=== PATIENT | female | born 1980 | race Caucasian/White ===

== ENCOUNTER 2023-05-12 00:44 | Day surgery (SDC) | payer OTHER, SELFPAY ==
[2023-04-27 10:11] VITALS: BMI 36.6
--- NOTE | 2023-05-10 09:12 | SUR.PREOP ---
Patient called regarding upcoming procedure. Reviewed preop instructions, appointment times, and procedure prep.
--- NOTE | 2023-05-11 13:33 | PM.HPGS ---
History of Present Illness History of Present Illness Consent: Risks, benefits, and alternatives have been discussed and questions answered. Patient agrees to proceed with procedure. Chief complaint: hx colon polyps Narrative: Tiffani Hackett is a 42 year old female referred for colon cancer screening. She has a history of colon polyps. Her last colonoscopy was 5 years ago. Review of Systems Review of Systems: All systems reviewed & are unremarkable except as noted in HPI and below PMFSH Past Medical History Medical History Anal fissure Carpal tunnel syndrome Chronic gastroesophageal reflux disease Colon polyps hx colon polyps 2015 2.26.18 normal. 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 Residual hemorrhoidal skin tags Skin scarring/fibrosis Social History Social History Smoking status: Never smoker Second hand tobacco smoke exposure: No Alcohol intake: current Substance use: never Substance use type: does not use Lack of Transportation: No Lack of Food: Never True Current Housing: I Have Housing Concerned About Future Housing: No Difficulty Paying Gas/Electric Bills: No Difficulty Paying for Meds: No Currently Unemployed: No Education: Bachelor's Degree Difficulty w/ Childcare or Family Care: No Living arrangements: alone Occupation/Education: occupation Spiritual care concerns: No Meds Home Medications and Allergies Home Medications Medication Instructions Recorded Confirmed Type fluticasone propionate 50 2 spray intranasal DAILY #50 mL 05/13/21 04/27/23 Rx mcg/actuation nasal spray,suspension (Flonase Allergy Relief) sumatriptan succinate 50 mg tablet 50 mg PO .COMPLEX #30 tabs 02/14/23 04/27/23 Rx Adult One Daily Multivitamin 1 gum PO DAILY 04/27/23 04/27/23 History acetaminophen 500 mg tablet 500 mg PO QID PRN Pain 04/27/23 04/27/23 History (Acetaminophen Extra Strength) propranolol 80 mg capsule,24 80 mg PO HS 04/27/23 04/27/23 History hr,extended release Allergies Allergy/AdvReac Type Severity Reaction Status Date / Time No Known Allergies Allergy Verified 05/12/23 07:56 Exam Const: General: alert Orientation/consciousness: patient oriented x3 Resp: Auscultation: clear to auscultation bilaterally Cardio: Rhythm: regular rhythm GI: GI Palp: Yes Soft to palpation and No Tenderness to palpation present (GI) Neuro: General: patient oriented x3 Assessment and Plan Assessment and plan (1) Personal history of colonic polyps: Code(s): Z86.010 - Personal history of colonic polyps Status: Acute Assessment and Plan: Colonoscopy with possible biopsy or polypectomy or cautery or injection of substances.
[2023-05-12 07:57] VITALS: BP 118/81; PULSE 64; RESP 18; TEMP 36.2; O2SAT 98
[2023-05-12] MEDS: LACTATED RINGERS 1,000 ML 150 ML IV CONT (08:12)
--- NOTE | 2023-05-12 08:20 | WPDANESEPPF ---
Anes - Initial Pre Proc Eval Procedure: Operation Date: 05/12/23 09:00 Proposed Procedures p Colonoscopy - Kevin Jones MD Date/Time: 05/12/23 08:20 Surgeon: Kevin Jones MD Pre Op Diagnosis: hx colon polyps Patient Data Age: 42 Gender: F Height: 1.57 m Weight: 91.6 kg Last Vital Signs Temp 97.2 F L 05/12/23 07:57 Pulse 64 05/12/23 07:57 Resp 18 05/12/23 07:57 BP 118/81 05/12/23 07:57 Pulse Ox 98 05/12/23 07:57 O2 Del Method Room Air 05/12/23 07:57 Allergies Allergy/AdvReac Type Severity Reaction Status Date / Time No Known Allergies Allergy Verified 05/12/23 07:56 Home Medications Medication Instructions Recorded Confirmed Type fluticasone propionate 50 2 spray intranasal DAILY #50 mL 05/13/21 04/27/23 Rx mcg/actuation nasal spray,suspension (Flonase Allergy Relief) sumatriptan succinate 50 mg tablet 50 mg PO .COMPLEX #30 tabs 02/14/23 04/27/23 Rx Adult One Daily Multivitamin 1 gum PO DAILY 04/27/23 04/27/23 History acetaminophen 500 mg tablet 500 mg PO QID PRN Pain 04/27/23 04/27/23 History (Acetaminophen Extra Strength) propranolol 80 mg capsule,24 80 mg PO HS 04/27/23 04/27/23 History hr,extended release Patient hx anesthesia problems: none Family hx anesthesia problems: none Results Review: All pre-operative results and documents have been reviewed as part of the pre-operative evaluation. [facility] Past Medical History Medical History (Updated 10/20/22 @ 12:18 by Sandra Elena MD) Anal fissure Carpal tunnel syndrome Chronic gastroesophageal reflux disease Colon polyps hx colon polyps 2014 2.26.18 normal. 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 Residual hemorrhoidal skin tags Skin scarring/fibrosis Social History Social History (Updated 10/20/22 @ 11:33 by JOVITA TruongT) Smoking status: Never smoker Second hand tobacco smoke exposure: No Alcohol intake: current Substance use: never Substance use type: does not use Lack of Transportation: No Lack of Food: Never True Current Housing: I Have Housing Concerned About Future Housing: No Difficulty Paying Gas/Electric Bills: No Difficulty Paying for Meds: No Currently Unemployed: No Education: Bachelor's Degree Difficulty w/ Childcare or Family Care: No Living arrangements: alone Occupation/Education: occupation Spiritual care concerns: No Anes - Eval Final PreProcedure Day of Procedure 05/12/23 08:20 Patient weight: obese Heart: regular rate and rhythm Lungs: clear to auscultation Airway: Mallampati scale class II Neurological: alert and oriented Last oral intake: >/= 8 hours ASA classification: II Emergent: no Anesthetic plan: proceed Anesthesia type and monitoring: general GIVS and standard monitoring Results Review: All pre-operative results and documents have been reviewed as part of the pre-operative evaluation. Informed Consent: The patient's anesthetic plan and its attendant risks and benefits were discussed with the patient/family/POA. Questions were solicited and answers provided to the satisfaction of the patient/family/POA.
[2023-05-12 09:01] VITALS: BP 100/63; PULSE 73; RESP 12; O2SAT 95
[2023-05-12 09:11] VITALS: BP 113/89; PULSE 67; RESP 16; O2SAT 95
[2023-05-12 09:21] VITALS: BP 117/75; PULSE 65; RESP 22; O2SAT 96
== END 2023-05-12 09:30 | disposition home or self-care (01) ==
PROVIDERS: PCP Family Medicine; Visit Provider Internal Medicine Gastroenterology
PROC: 0DJD8ZZ Inspection of Lower Intestinal Tract, Via Natural or Artificial Opening Endoscopic (ICD-10-PCS; CPT 45378; principal; 2023-05-12 09:00)
DX: Z12.11 Encounter for screening for malignant neoplasm of colon (principal); K57.30 Diverticulosis of large intestine without perforation or abscess without bleeding; Z86.010 Personal history of colon polyps; K21.9 Gastro-esophageal reflux disease without esophagitis
CPT/HCPCS: 45378; J2704; J7120